=== PATIENT | female | born 1960 | race Caucasian/White ===

== ENCOUNTER 2020-11-10 14:47 | Emergency (ER) | payer OTHER ==
[~2020-11-10] VITALS: Ht 149.9 cm; Wt 65.8 kg
[~2020-11-10 14:47] MED LIST: ATIVAN0.5 MG PO; BAYER CHEWABLE81 MG PO; PROZAC20 MG PO; ZIAC 2.5/6.252.5 MG; ZIAC 5-6.25 MG1 EACH PO
[2020-11-10] MEDS ORDERED: LISINOPRIL10 MG PO (15:02)
[2020-11-10] MEDS ORDERED: CLONAZEPAM 0.50.5 M1 PO (15:02)
[2020-11-10] MEDS ORDERED: ESCITALOPRA5 MG/5 ML PO (15:03)
[2020-11-10 15:41] LABS: ABSOLUTE BASOPHILS 0.1 thou/uL (0.0-0.2); ABSOLUTE EOSINOPHILS 0.4 thou/uL (0.0-0.7); ABSOLUTE LYMPHOCYTES 2.2 thou/uL (0.8-5.3); ABSOLUTE MONOCYTES 0.4 thou/uL (0.0-1.2); ABSOLUTE NEUTROPHILS 3.3 thou/uL (1.6-8.1); EOSINOPHILS 5.7 %; HEMATOCRIT 37.6 % (37.0-47.0); HEMOGLOBIN 13.5 gm/dL (12.0-15.0); LYMPHOCYTES 34.8 %; MCH 33.8 pg (26.0-34.0); MCHC 35.8 g/dL (28.0-37.0); MCV 94.2 fL (80.0-100.0); MONOCYTES 6.9 %; MPV 7.2 fl. (7.2-11.1); NUCLEATED RBCS 0 /100WBC; PLATELET COUNT* 237 thou/uL (150-400); POLYS 51.6 %; RBC 3.99 mil/uL (4.20-5.00); RDW-CV 13.2 % (10.5-14.5); WBC 6.3 thou/uL (4.0-11.0)
[2020-11-10 15:51] LABS: CALCIUM 8.4 mg/dL (8.5-10.1); CREATININE 0.7 mg/dL (0.6-1.3); POTASSIUM 4.2 mmol/L (3.5-5.1)
[2020-11-10 15:56] LABS: TOTAL BILIRUBIN 0.4 mg/dL (<0.1-1.0); TOTAL PROTEIN 7.6 g/dL (6.4-8.2)
--- NOTE | 2020-11-10 16:02 | EKG ---
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: [facility] : 1960 Requested By: Julian Velasquez Order Number: [id number] MD: Hernesto Morris Measurements Intervals [place] Rate: 69 P: 59 PA: 159 QRS: -21 QRSD: 98 T: 28 QT: 416 QTc: 446 Interpretive Statements Sinus rhythm Borderline left axis deviation RSR' in V1 or V2, probably normal variant Compared to ECG 10/19/2013 21:05:14 no change Electronically Signed On 11-10-2020 16:02:09 CDT by Hernesto Morris [email or web address] <ELECTRONICALLY SIGNED> By: Hernesto Morris MD, [facility] 11/10/20 1602 1534 1534 Hernesto Morris MD, [facility] /EPI
[2020-11-10 16:32] VITALS: BP 154/88
== END 2020-11-10 16:32 | disposition home or self-care (01) ==
LOC: M.ERS 14:47
PROVIDERS: Physician Assistant
DX: M54.2 Cervicalgia (principal); I10 Essential (primary) hypertension; E78.5 Hyperlipidemia, unspecified; Z79.82 Long term (current) use of aspirin; Z90.89 Acquired absence of other organs; Z90.710 Acquired absence of both cervix and uterus; Z79.899 Other long term (current) drug therapy